=== PATIENT | female | born 1965 | race Caucasian/White ===

== ENCOUNTER 2018-10-11 08:47 | Outpatient (CLI) | payer OTHER ==
[~2018-10-11 08:47] MED LIST: CATAFLAM50 MG PO; COZAAR25 MG PO; INTESTINEX1 CA1 PO; IRON1TAB4 PO; MELOXICAM15 MG; ULTRACET PO
== END 2018-10-11 08:49 | disposition home or self-care (01) ==
LOC: SONOGRAMA 08:47
DX: E04.1 Nontoxic single thyroid nodule (principal)

== ENCOUNTER 2019-09-06 10:20 | Day surgery (SDC) | payer OTHER | END 2019-09-06 15:10 | disposition home or self-care (01) | LOC: AMB-ENDOS 10:20 | DX: K64.8 Other hemorrhoids (principal); K57.30 Diverticulosis of large intestine without perforation or abscess without bleeding ==

== ENCOUNTER 2020-02-21 18:39 | Emergency (ER) | payer OTHER ==
[~2020-02-21] VITALS: Ht 175.3 cm; Wt 114.3 kg
== END 2020-02-21 20:48 | disposition home or self-care (01) ==
LOC: ER 18:39
DX: M25.562 Pain in left knee (principal); M25.561 Pain in right knee

== ENCOUNTER 2021-03-10 16:19 | Emergency (ER) | payer OTHER ==
[~2021-03-10] VITALS: Ht 170.2 cm; Wt 108.9 kg
[2021-03-10] MEDS ORDERED: IBU800 MG PO (19:25)
== END 2021-03-10 19:43 | disposition home or self-care (01) ==
LOC: ER 16:19
DX: M54.5 Low back pain (principal)

== ENCOUNTER 2023-02-10 11:04 | Emergency (ER) | payer OTHER ==
[~2023-02-10] VITALS: Ht 167.6 cm; Wt 117.9 kg
[~2023-02-10 11:04] MED LIST changes: +IBU800 MG PO
[2023-02-10] MEDS ORDERED: MONTELUKAST SODI4 M1 (11:31)
[2023-02-10] MEDS ORDERED: ZYRTEC10 M3 PO (11:32)
== END 2023-02-10 13:25 | disposition home or self-care (01) ==
LOC: ER 11:04
DX: M75.52 Bursitis of left shoulder (principal); Z88.0 Allergy status to penicillin; Z91.018 Allergy to other foods

== ENCOUNTER 2023-04-25 15:16 | Emergency (ER) | payer OTHER ==
[~2023-04-25] VITALS: Ht 167.6 cm; Wt 117.9 kg
[~2023-04-25 15:16] MED LIST changes: +MONTELUKAST SODI4 M1; +ZYRTEC10 M3 PO
== END 2023-04-25 17:17 | disposition home or self-care (01) ==
LOC: ER 15:16
DX: R53.81 Other malaise (principal); J06.9 Acute upper respiratory infection, unspecified; Z88.0 Allergy status to penicillin; Z91.018 Allergy to other foods